=== PATIENT | male | born 1995 ===

== ENCOUNTER 2018-09-16 09:41 | Outpatient (CLI) | payer OTHER | END 2018-09-16 09:42 | disposition home or self-care (01) | LOC: C.PAT 09:41 | DX: Z01.818 Encounter for other preprocedural examination (principal) ==

== ENCOUNTER 2018-09-20 05:54 | Day surgery (SDC) | payer OTHER ==
[2018-09-16 09:57] VITALS: BMI 30.7
[2018-09-20] MEDS ORDERED: Midazolam 2 MG/2 ML VIAL ONE (07:36)
[2018-09-20] MEDS ORDERED: Propofol 10 mg/ml Inj (20 ML) ONE ×2 (07:37→12:27)
[2018-09-20] MEDS ORDERED: ceFAZolin IV 2 gm in Dextrose 0 GM/0 ML BAG IVPB ONE (07:55)
[2018-09-20] MEDS ORDERED: ceFAZolin 1 gm in NS 2 GM/200 ML BAG IVPB ONE (07:56)
[2018-09-20] MEDS ORDERED: Rocuronium 10 mg/ml (5 ml) ONE (11:58)
[2018-09-20] MEDS ORDERED: Neostigmine 1:1000 (1 mg/ml) Inj ONE (12:03)
[2018-09-20] MEDS: HYDROmorphone 0.5 mg/0.5 ml ISec IVP PRN ×3 (12:55→14:32)
[2018-09-20] MEDS ORDERED: ceFAZolin IV 2 gm in Dextrose 2 GM/50 ML BAG IVPB ONE (13:56)
[2018-09-20 14:07] VITALS: TEMP 97.8
[2018-09-20 16:00] VITALS: PULSE 97; RESP 19
[2018-09-20 18:29] VITALS: BP 135/79; O2SAT 99
--- NOTE | 2018-09-21 11:33 | RAD ---
Date of service: The 09/20/2018 PROCEDURE: Intraoperative Fluoroscopy. HISTORY: RT. HIP LABRAL TEAR FINDINGS: Fluoroscopic assistance was provided Fluoroscopy time = 161.4 sec. Radiation dose = 24.87 mGy.. Please refer to the operative report from JAIRO Nunn, , MD [facility].
--- NOTE | 2018-09-22 06:13 | PCM.SURG1 ---
Surgeon's Initial Post Op Note - Surgeon's Notes Surgeon: Debbie Alvarado MD Cardiothoracic Physiotherapist: Carmela Denton PA-C Type of Anesthesia: General Endo Pre-Operative Diagnosis: Right Hip: #1 Labral Tear. 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 #4 Ligamentum Teres Partial tear. #5 significant Synovitis in central and peripheral compartments. #6 Capsulitis with significantly tight hip capsule Post-Operative Diagnosis: Right Hip: #1 Complex Labral Tear (not repairable). 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 #4 Ligamentum Teres Partial tear. #5 significant Synovitis in central and peripheral compartments. #6 Capsulitis with significantly tight hip capsule Operation Performed: Right Hip Arthroscopic: #1 Femoral Osteoplasty. #2 Complex Labral tear debridement and thermoplastic repair. #3 Extensive Synovectomy. #4 Capsulectomy/ capsular debridement. #5 Chondroplasty Femoral Head. #6 Debridement partial Ligamentum Teres tear. #7 PRP intra-articular injection Specimen/Specimens Removed: Specimen= none. Complications= none. Traction time= 120 minutes. Implants= none. Pre-op and Post-op Evaluation: I personally evaluated the pt in pre-op holding and post-op in PACU. I was not ified by PACU nurses that the patient reported sensory changes in Right foot and ankle as well as possible weakness. I immediately evaluated the pt personally, I found no motor or sensory defects, no Perineal sensory defects either. EXAM IN PACU: Left Lower Extremity: hip brace in good position, straps not too tight. surgical dressing c/d/i. ROM at all joints, including hip full, as expected normal post-op groin/hip pain present. +5/5 motor strength hip flex/ext, knee flex/ext, ankle dorisflexion/plantarflexion, toes up & down. sensory intact L2-S1, SCFN/TN/DPN/SPN. 2+ DP and PT pulses, BCR all toes Estimated Blood Loss: EBL {In ML}: 3 Drains Used: No Drains Post-Op Condition: Good Date of Surgery/Procedure: 09/20/18 Time of Surgery/Procedure: 11:00
--- NOTE | 2018-10-09 17:04 | OP ---
PROCEDURE DATE: 09/20/2018 PREOPERATIVE DIAGNOSES: Right hip 1. Labral tear. 2. Femoroacetabular impingement/femoral cam deformity. 3. Stiffness. 4. Synovitis. POSTOPERATIVE DIAGNOSES: Right hip 1. Complex labral tear. 2. Femoroacetabular impingement/femoral cam deformity. 3. Focal areas of chondromalacia grade 1 to 2 along the femoral head (no full thickness defect seen). 4. Ligamentum teres partial tear. 5. Significant synovitis in central and peripheral compartments. 6. Capsulitis with significantly tight hip capsule. PROCEDURES: Right hip arthroscopic 1. Femoral osteoplasty. 2. Labral repair and debridement. 3. Extensive synovectomy. 4. Capsulectomy/capsular debridement. 5. Chondroplasty, femoral head. 6. Debridement partial ligamentum teres tear. 7. Intraarticular PRP injection. SURGEON: Debbie Alvarado MD. SUPERVISOR FINISHING DEPARTMENT: Carmela Solomon PA-C. JUSTIFICATION FOR SUPERVISOR FINISHING DEPARTMENT: Carmela Solomon is a certified physician urology physician assistant who is a skilled rn neurosurgical and whose presence was an absolute necessity for successful completion of the procedure as he provided skilled surgical assistance with positioning of the patient, application of traction, positioning of hip distractor, creation of portals and hip access points, labral repair and passage of suture, femoral osteoplasty and positioning of extremity, extensive synovectomy and capsulectomy, extensive debridement including debridement of ligamentum teres, wound closure, transfer and removal from hip distractor. Carmela Solomon was present for the entire case and was an absolute necessity for successful completion of the procedure. ANESTHESIA: General endotracheal anesthesia. COMPLICATIONS: None. SPECIMEN: None. TRACTION TIME: 120 minutes. ESTIMATED BLOOD LOSS: 3 mL. DRAINS: None. DISPOSITION: The patient was extubated and transferred to PACU in stable condition having tolerated the procedure well. PREOPERATIVE AND POSTOPERATIVE EVALUATION: I personally evaluated the patient in preop holding and postop in PACU. It was identified by PACU nurses that patient reported sensory changes in right foot and ankle as well as possible weakness. I immediately evaluated the patient personally, I found no motor or sensory defects, no peroneal sensory defects either. EXAMINATION IN PACU: Left lower extremity: Hip brace in good position, straps are not too tight, surgical dressing is clean, dry and intact, range of motion in all joints including hip is full as expected. Normal postop groin/hip pain is present. 5/5 motor strength, hip flexion/extension, knee flexion/extension, ankle dorsiflexion/plantarflexion, toes up and down. Sensory intact L2-S1, superficial cutaneous femoral nerve/tibial nerve/deep peroneal nerve/superficial peroneal nerve. 2+ dorsalis pedis pulse and 2+ posterior tibialis pulse, brisk cap refill all toes. Calves, soft and nontender bilaterally. INDICATIONS FOR SURGERY: The patient is a 23-year-old male with past medical history significant for hypothyroidism, who presented to the office for the first time under my care on 07/29/2018 with right hip pain for over one year localized to the groin. The pain was worse with internal rotation and high flexion. He had subjective restricted range of motion as he was not able to tolerate any flexion beyond 90 or any internal rotation. He was under the care of Dr. Yogesh Tan, another orthopedic surgeon over the past year. After a workup and conservative treatment, a diagnosis of left hip labral tear and femoroacetabular impingement was established. In December 2017, he underwent a fluoroscopic-guided intraarticular hip injection by Dr. Yogesh Tan, the initial orthopedic surgeon treating him, which the patient reported afterwards a complete resolution of pain and ability to flex past 90 and internal rotate that lasted approximately three weeks after which the pain progressively returned back to baseline level of pain and dysfunction. He has been compliant with conservative treatment over the past year including antiinflammatory medications/Mobic, antiinflammatory cream, multiple rounds of physical therapy and a cortisone mixture injection under fluoroscopic guidance by Dr. Yogesh Tan with no overall significant improvement and worsening loss of subjective range of motion. Evaluation in the office on 07/29/2018 yielded x-rays that showed that the joint space was well maintained with good overall alignment and a significant femoroacetabular impingement/cam lesion at the femoral head neck junction. On physical examination, the pain was localized to the groin with inability to flex the hip past 90 and he could not tolerate any internal rotation in a flexed position. Otherwise, there was full abduction, full adduction, and full extension and external rotation. He was referred for repeat MR arthrogram done at [facility] on 08/05/2018, which was read as 1. No evidence of fracture or AVM. 2. Prominence of lateral femoral head neck junction, which can be seen in the setting of cam type femoroacetabular impingement. 3. Extensive tear of the anterior superior aspect acetabular labrum. 4. Mild greater trochanteric bursitis. No tendon tear. After reviewing treatment options with him and the MR arthrogram results and imaging, we discussed more definitive treatment options. He was indicated for arthroscopic hip surgery to include right hip arthroscopic labral repair, synovectomy, femoral osteoplasty and all related indicated arthroscopic procedures including capsulectomy. The risks, benefits, and alternatives to the procedure were discussed at length with the patient with the risks including but not limited to infection, neurovascular damage, traction, paresthesias including peroneal loss of sensation from traction time and pressure, loss of function, loss of limb, development of blood clots, development of heterotropic ossification, development of a femoral neck fracture, inability to return to preinjury level of activity and function as well as occupation, anesthesia reactions including , development of chronic pain and disability, development of blood clots including DVT and PE. After answering all of his questions, he stated that he understood the risks and wished to proceed with surgery. He watched surgical animation videos and diagnosis animation videos at length, and after answering all his questions, he stated that he had a good understanding of the hip arthroscopic procedure as well as the multiple diagnoses. He was referred to his primary care physician for preadmission testing and preoperative medical evaluation and the procedure was scheduled at [facility] on 09/20/2018. DESCRIPTION OF PROCEDURE: The patient was identified in the preoperative holding area and the right hip was marked for surgery. Once again as described above, the risks, benefits, and alternatives of the procedure were discussed at length with the patient and informed consent was obtained. After a brief discussion with anesthesia staff, the patient was taken to the operating room and placed on the well-padded operating room table with all bony prominences and superficial neurovascular structures well padded. An initial timeout was done with the surgeon, anesthesia staff, OR staff, all in agreement with the patient, the procedure being done, and the extremity being operated on. General anesthesia was administered without difficulty or complication. Examination under anesthesia was then carried out. EXAMINATION UNDER ANESTHESIA: Right hip with no swelling, no warmth, no erythema, skin intact, no instability, full range of motion compared to contralateral hip, no internal click or internal snapping, no external snapping. CONTINUATION OF PROCEDURE: The patient was then brought down to the peroneal post and the right lower extremity was placed in a well-padded traction boot. The left lower extremity was also placed in a well-padded traction boot as countertraction. Fluoroscopic imaging was then brought into the field, and with AP views of the right hip, traction was applied to distract the hip joint. Once there was adequate distraction at the hip joint to allow for arthroscopic access to the hip joint, we then proceeded to take a note of traction time and the right hip was prepped and draped in the standard sterile fashion. With the use of spinal needle localization, the anterolateral portal was created after the spinal needle was advanced anterior to the tip of the greater trochanter straight down to the acetabulum with care taken not to damage the labrum. Once the spinal needle was in and confirmed under fluoroscopic guidance, then the dilators were advanced over a flexible wire. A small incision was made at the level of the trocar at the skin measuring approximately 2 to 3 cm and the trocar from pivot was advanced until an intraarticular position. Arthroscopic camera was then inserted, and with the use of fluoroscopic imaging and arthroscopic visualization, the anterior portal was identified and established after the spinal needle was seen in the medial triangle. Stab incision was made through skin down to subcutaneous tissue and the trocar was advanced after sequential dilating was carried out. With the use of the Arthrex Banana blade, a capsulotomy was carried out connecting the anterolateral portal to the anterior portal to release the tight capsule that was present. At that point in time, once we established good arthroscopic flow and visualization, a diagnostic arthroscopy was then carried out. The attention was first turned towards the anterior superior labrum where indeed there was a complex labral tear with significant fibrillation and poor quality labral tissue present. The labrum was actually subluxed into the femoroacetabular joint and appeared to be entrapped and impinged with weightbearing. Attention was then turned towards the femoral head where immediately seen at its weightbearing aspect was grade 1 to 2 focal areas of chondromalacia with no full-thickness defect seen, but there was significant unstable cartilage fragments at . Attention was then turned towards the acetabulum where intact cartilage was seen, but down at the level of the ligamentum teres, there was an obvious partial-thickness ligamentum tear. Attention was then turned towards the posterior labrum where it was found to be intact. CONTINUATION OF PROCEDURE: Arthroscopic hip extensive debridement and synovectomy: With the use of arthroscopic shaver and radiofrequency ablation, an extensive synovectomy and debridement was carried out while establishing a smooth contour to the chondral surfaces and maintaining good hemostasis. Attention was first turned towards the central compartment where the grade 1 to 2 chondromalacia of the femoral head was addressed and a smooth femoral head chondral surface was established with the arthroscopic shaver and radiofrequency ablation. The partial tear of the ligamentum was debrided to avoid entrapment and impingement of soft tissue at the femoroacetabular joint. Attention was then turned towards the evaluation of the labrum. ARTHROSCOPIC HIP LABRAL REPAIR: With the use of arthroscopic shaver and radiofrequency ablation, the complex labral tear was carefully debrided and brought back to a stable rim. The stable rim of labrum was then further evaluated and was found to be of poor quality tissue not amenable to a repair and also at the periphery was still somewhat attached to the acetabular rim. With the use of radiofrequency ablation, thermoplastic repair of the labrum was carried out and a smooth contour was established with a stable labrum successfully established. At that point in time, once the central compartment work was finished and the extensive synovectomy was completed as well as the labral repair, attention was then turned towards the critical compartment. The hip joint was removed from traction with a total traction time of 120 minutes. The thickened capsulitis layer around the femoral head was carefully debrided back and resected with the use of arthroscopic shaver and radiofrequency ablation. This required a significant amount of time performing a capsulectomy and continuing with the extensive synovectomy. Once we had enough access to the cam lesion at the femoral head, we then proceeded with the femoral osteoplasty. ARTHROSCOPIC HIP FEMORAL OSTEOPLASTY: With the use of the arthroscopic brad, the area of cam type impingement at the femoral head neck junction was smoothed out and flattened and resected establishing a flat junction of the femoral head and neck with the damaged overlying cartilage removed as well. Multiple views and positions were taken with the help of fluoroscopic imaging as well as flexing of the hip to determine if there was any more cam-type impingement present. Once it was established that the femoral osteoplasty was completed to satisfaction, we then proceeded with completion of the extensive synovectomy/debridement/capsulectomy. Once the thickened capsule that was impeding on his range of motion was successfully removed, final arthroscopic pictures were taken. The arthroscopic fluid was removed, and with the help of anesthesia staff, 10 mL of PRP was obtained. ARTHROSCOPIC INTRAARTICULAR HIP PRP INJECTION: With the help of anesthesia staff, 10 mL of PRP was obtained after a peripheral venous stick was obtained from the patient. The blood was in the Arthrex Centrifuge, and at the end of the spinning process, 10 mL of PRP were yielded. The 10 mL of PRP were injected intraarticularly under direct arthroscopic visualization in its entirety. The wounds were then copiously irrigated and reapproximated with 2-0 Vicryl sutures followed by 3-0 Monocryl sutures for skin. Sterile dressings were applied and the patient was carefully transferred back to his stretcher and from there back to recovery. He will be discharged home once he has recovered from anesthesia. JUSTIFICATION FOR BILLING AND CODING: DISPOSITION: The patient will be discharged home once he has recovered from anesthesia. He is instructed to be strict nonweightbearing to the right lower extremity to avoid femoral neck iatrogenic injury/femoral neck fracture in the setting of a femoral osteoplasty/resection of cam. He is instructed to keep the abduction hip brace on at all times with the limits of motion from 0 to 90 degrees flexion. He has been given a prescription for Percocet for pain control. He will follow up in my office within one week and already has his postoperative appointment set up. He will contact me with any questions or concerns. He has been started on Lovenox 40 mg subcutaneous injections starting postoperative day #1 for a total of two weeks as DVT prophylaxis. He has been started on indomethacin 50 mg every 8 hours starting day of surgery and extending for two months postoperatively as heterotopic ossification prophylaxis. Debbie Alvarado MD
== END 2018-09-20 18:30 | disposition home or self-care (01) ==
LOC: C.SDS 05:54
PROVIDERS: ATTEND Student in an Organized Health Care Education/Training Program
DX: M24.151 Other articular cartilage disorders, right hip (principal); M25.451 Effusion, right hip; S73.11 Iliofemoral ligament sprain of hip; M65.9 Synovitis and tenosynovitis, unspecified; S73.101A Unspecified sprain of right hip, initial encounter; M25.851 Other specified joint disorders, right hip; M77.9 Enthesopathy, unspecified
CPT/HCPCS: 27599; 29862; 29863; 76000; J0171; J0690; J1170; J2001; J2250; J2405; J2704; J2710; J3010